=== PATIENT | male | born 1950 | race Caucasian/White ===

== ENCOUNTER 2018-12-01 22:03 | Inpatient (IN) | payer MEDICARE, MEDICAID ==
[~2018-12-01] VITALS: Ht 172.7 cm; Wt 84.5 kg
[~2018-12-01 22:03] MED LIST: ACET-1757 PO; ACET650S12 PR; AMLO10TA8 PO; ASPI-496 PO; DIPH1TAB6 PO; GUAI5SYR PO; HEPA500024 SQ; LOSA100T14 PO; METO25TA35 PO; NITR0.4T28 SL; OMEP-110 PO; OXYC5TAB3 PO; PIPE4.5V6 IVPB; SIMV40TA3 PO
--- NOTE | 2018-12-01 22:20 | NUR ---
PT FLOWN IN FROM [facility]. EMS WAS CALLED S/T PT HAVING CP TONIGHT. STATES INTERMITTENT DIZZINESS AND CP 3 DAYS. "BROKE INTO A SWEAT" YESTERDAY. PT WITH HX OF [place] AND AORTIC DISSECTION. PT RECEIVED 324 MG ASA AND 1 NITRO DREDGEMASTER AND PRESENTS 0/10 FROM 710 CP. DENIES SYMPTOMS AT THIS TIME. VSS. CALL LIGHT IN REACH. FAMILY AT BEDSIDE.
[2018-12-01] MEDS ORDERED: CHLO25TA PO (22:22)
[2018-12-01] MEDS ORDERED: POTA10CA PO (22:22)
[2018-12-01] MEDS ORDERED: METO50TA82 PO (22:22)
[2018-12-01] MEDS ORDERED: CALC0.25 PO (22:22)
[2018-12-01] MEDS ORDERED: LOSA25TA25 PO (22:22)
--- NOTE | 2018-12-01 22:25 | NUR ---
XRAY AT BEDSIDE. LABS HAVE BEEN DRAWN.
[2018-12-01 22:27] LABS: BASOPHILS # (AUTO) 0.06 x10^3/uL (0-0.1); BASOPHILS % (AUTO) 1 % (0-1); EOSINOPHILS # (AUTO) 0.05 x10^3/uL (0-0.4); EOSINOPHILS % (AUTO) 1 % (1-7); LYMPHOCYTES % (AUTO) 15 % (22-44); MD NO; MEAN CORPUSCULAR HGB CONC 33.2 g/dL (33.2-36.2); MEAN CORPUSCULAR VOLUME 90.4 fL (81-97); MEAN PLATELET VOLUME 7.8 fL (7.4-10.4); MONOCYTES # (AUTO) 0.73 x10^3/uL (0.2-0.8); MONOCYTES % (AUTO) 9 % (2-9); NEUTROPHILS # (AUTO) 6.16 x10^3/uL (1.8-6.8); NEUTROPHILS % (AUTO) 75 % (42-75); PLATELET COUNT 186 x10^3/uL (130-400); RED BLOOD COUNT 6.08 x10^6/uL (4.38-5.82); RED CELL DISTRIBUTION WIDTH 14.5 % (9.4-14.8)
[2018-12-01 22:38] LABS: ALANINE AMINOTRANSFERASE 14 U/L (12-78); ALBUMIN 3.6 g/dL (3.4-5.0); ANION GAP 8 mmol/L (5-15); CALCIUM 8.6 mg/dL (8.5-10.1); CHLORIDE 108 mmol/L (98-107); CREATININE 2.87 mg/dL (0.7-1.3)
[2018-12-01 22:43] LABS: ALKALINE PHOSPHATASE 76 U/L (45-117); BILIRUBIN,TOTAL 0.7 mg/dL (0.2-1.0); TOTAL PROTEIN 7.7 g/dL (6.4-8.2); TROPONIN I 0.113 ng/mL (0.000-0.045)
--- NOTE | 2018-12-01 22:50 | NUR ---
PT RESTING COMFORTABLY. NO ACUTE CHANGES NOTED. DENIES CP. AWAITING TEST RESULTS AND RECHECK. CALL LIGHT IN REACH.
[2018-12-01] MEDS ORDERED: ONDANSETRON 2MG/ML, 2ML IVPush PRN (23:30)
[2018-12-01] MEDS ORDERED: MORPHINE SULFATE 4 MG/ML, 1ML IVPush PRN (23:30)
[2018-12-02] MEDS ORDERED: NITROGLYCERIN SINGLE TAB 0.4 MG SL PRN
[2018-12-02 00:12] VITALS: BP 128/80
[2018-12-02] MEDS ORDERED: POLYETHYLENE GLYCOL 17 GM PACKET PO PRN (00:30)
[2018-12-02] MEDS ORDERED: morphine SULFATE 10 MG/ML, 1ML IVPush PRN (00:30)
[2018-12-02] MEDS ORDERED: BISACODYL 10 MG SUPP PR PRN (00:30)
[2018-12-02] MEDS ORDERED: ACETAMINOPHEN 325 MG TABLET PO PRN (00:30)
[2018-12-02] MEDS: POTASSIUM CHLORIDE 10 MEQ TABLET.ER PO SCH ×3 (00:30→21:35)
[2018-12-02] MEDS ORDERED: ONDANSETRON ODT 4 MG PO PRN (00:30)
[2018-12-02] MEDS ORDERED: NITROGLYCERIN 0.4 MG BOTTLE (25 TABS) SL PRN (00:30)
[2018-12-02] MEDS: NICOTINE 14MG/24 HR PATCH.TD24 TD SCH (00:30)
[2018-12-02] MEDS ORDERED: HEPARIN 5,000 UNITS/ML, 1ML SQ SCH (00:30)
[2018-12-02 05:22] LABS: BASOPHILS # (AUTO) 0.06 x10^3/uL (0-0.1); BASOPHILS % (AUTO) 1 % (0-1); EOSINOPHILS # (AUTO) 0.07 x10^3/uL (0-0.4); EOSINOPHILS % (AUTO) 1 % (1-7); LYMPHOCYTES # (AUTO) 2.38 x10^3/uL (1-3.4); LYMPHOCYTES % (AUTO) 31 % (22-44); MD NO; MEAN CORPUSCULAR HEMOGLOBIN 29.9 pg (27.5-34.5); MEAN CORPUSCULAR HGB CONC 33.2 g/dL (33.2-36.2); MEAN PLATELET VOLUME 8.1 fL (7.4-10.4); MONOCYTES # (AUTO) 0.66 x10^3/uL (0.2-0.8); MONOCYTES % (AUTO) 9 % (2-9); NEUTROPHILS # (AUTO) 4.46 x10^3/uL (1.8-6.8); NEUTROPHILS % (AUTO) 59 % (42-75); PLATELET COUNT 186 x10^3/uL (130-400); RED BLOOD COUNT 5.95 x10^6/uL (4.38-5.82); RED CELL DISTRIBUTION WIDTH 14.7 % (9.4-14.8)
[2018-12-02 05:30] LABS: CALCIUM 8.8 mg/dL (8.5-10.1); CHLORIDE 108 mmol/L (98-107)
[2018-12-02 05:39] LABS: ALANINE AMINOTRANSFERASE 12 U/L (12-78); ALBUMIN 3.5 g/dL (3.4-5.0); ALKALINE PHOSPHATASE 67 U/L (45-117); ANION GAP 8 mmol/L (5-15); BILIRUBIN,TOTAL 0.8 mg/dL (0.2-1.0); CREATININE 2.67 mg/dL (0.7-1.3); TOTAL PROTEIN 7.3 g/dL (6.4-8.2); TROPONIN I 0.635 ng/mL (0.000-0.045)
[2018-12-02] MEDS ORDERED: HEPARIN 25,000 UNITS/500ML PMX 500 ML IV PRN (06:30)
[2018-12-02] MEDS ORDERED: HEPARIN MC SCH (06:30)
[2018-12-02] MEDS ORDERED: HEPARIN 5,000 UNITS/ML, 1ML IV ONE (06:30)
[2018-12-02] MEDS: HEPARIN 25,000 UNITS/500ML PMX 500 ML IV PRN (07:00)
[2018-12-02 07:10] VITALS: BP 115/80
[2018-12-02] MEDS ORDERED: AMLODIPINE 10 MG TAB PO SCH (09:00)
[2018-12-02] MEDS ORDERED: CHLORTHALIDONE 25 MG TABLET PO SCH (09:00)
[2018-12-02] MEDS: SENNA/DOCUSATE TABLET PO SCH (09:28)
[2018-12-02] MEDS: OMEPRAZOLE 20 MG CAPSULE.DR PO SCH (09:28)
[2018-12-02] MEDS: SODIUM CHLORIDE FLUSH 10ML SYR IVF SCH ×2 (09:28→21:36)
[2018-12-02] MEDS: CALCITRIOL 0.25 MCG CAPSULE PO SCH (09:28)
[2018-12-02] MEDS: METOPROLOL TARTRATE 50 MG TABLET PO SCH ×2 (09:29→21:00)
[2018-12-02] MEDS: LOSARTAN 25MG TABLET PO SCH (09:29)
[2018-12-02] MEDS: ASPIRIN 81 MG TABLET EC PO SCH (09:29)
[2018-12-02 10:33] LABS: TROPONIN I 0.314 ng/mL (0.000-0.045)
[2018-12-02 12:24] VITALS: BP 116/76
[2018-12-02] MEDS: CLOPIDOGREL 75 MG TABLET PO SCH (13:12)
[2018-12-02] MEDS: ISOSORBIDE MONONITRATE ER 30 MG TABLET PO SCH (13:12)
[2018-12-02 19:34] VITALS: BP 97/60
[2018-12-02 20:48] VITALS: BP 101/63
[2018-12-02] MEDS: HEPARIN 5,000 UNITS/ML, 1ML IV PRN (21:31)
[2018-12-02] MEDS: ATORVASTATIN 80 MG TABLET PO SCH (21:35)
[2018-12-03] MEDS: NICOTINE 14MG/24 HR PATCH.TD24 TD SCH ×2 (00:30→20:44)
[2018-12-03 03:46] VITALS: BP 115/71
[2018-12-03 03:49] LABS: BASOPHILS # (AUTO) 0.11 x10^3/uL (0-0.1); BASOPHILS % (AUTO) 1 % (0-1); EOSINOPHILS # (AUTO) 0.12 x10^3/uL (0-0.4); EOSINOPHILS % (AUTO) 1 % (1-7); LYMPHOCYTES # (AUTO) 2.78 x10^3/uL (1-3.4); LYMPHOCYTES % (AUTO) 31 % (22-44); MD NO; MEAN CORPUSCULAR HEMOGLOBIN 29.8 pg (27.5-34.5); MEAN CORPUSCULAR VOLUME 90.4 fL (81-97); MEAN PLATELET VOLUME 8.2 fL (7.4-10.4); MONOCYTES # (AUTO) 0.79 x10^3/uL (0.2-0.8); MONOCYTES % (AUTO) 9 % (2-9); NEUTROPHILS # (AUTO) 5.24 x10^3/uL (1.8-6.8); NEUTROPHILS % (AUTO) 58 % (42-75); PLATELET COUNT 188 x10^3/uL (130-400); RED BLOOD COUNT 5.84 x10^6/uL (4.38-5.82); RED CELL DISTRIBUTION WIDTH 14.7 % (9.4-14.8)
[2018-12-03 04:00] LABS: ALANINE AMINOTRANSFERASE 14 U/L (12-78); ALBUMIN 3.3 g/dL (3.4-5.0); ANION GAP 9 mmol/L (5-15); CALCIUM 8.6 mg/dL (8.5-10.1); CHLORIDE 108 mmol/L (98-107)
[2018-12-03 04:02] LABS: ALKALINE PHOSPHATASE 64 U/L (45-117); CHOL/HDL RATIO 6.3; CHOLESTEROL, TOTAL 169 mg/dL (140-239); CREATININE 2.82 mg/dL (0.7-1.3); HDL CHOL % 16 % (26-37); HDL CHOLESTEROL (DIRECT) 27 mg/dL (40-60); LDL CHOLESTEROL,CALCULATED 110 mg/dL (54-169); LDL/HDL RATIO 4.1 (0.5-3.0); TRIGLYCERIDES 158 mg/dL (50-200); VLDL CHOLESTEROL 32 mg/dL (0-25)
[2018-12-03 06:40] VITALS: BP 111/66
[2018-12-03] MEDS ORDERED: REGADENOSON 0.4 MG/5 ML SYRINGE ONE (07:49)
[2018-12-03] MEDS: HEPARIN 25,000 UNITS/500ML PMX 500 ML IV PRN (08:26)
[2018-12-03] MEDS: POTASSIUM CHLORIDE 10 MEQ TABLET.ER PO SCH ×2 (10:46→20:41)
[2018-12-03] MEDS: OMEPRAZOLE 20 MG CAPSULE.DR PO SCH (10:46)
[2018-12-03] MEDS: LOSARTAN 25MG TABLET PO SCH (10:47)
[2018-12-03] MEDS: SODIUM CHLORIDE FLUSH 10ML SYR IVF SCH ×2 (10:47→20:40)
[2018-12-03] MEDS: SENNA/DOCUSATE TABLET PO SCH (10:47)
[2018-12-03] MEDS: CLOPIDOGREL 75 MG TABLET PO SCH (10:47)
[2018-12-03] MEDS: ASPIRIN 81 MG TABLET EC PO SCH (10:47)
[2018-12-03] MEDS: ISOSORBIDE MONONITRATE ER 30 MG TABLET PO SCH (10:47)
[2018-12-03] MEDS: METOPROLOL TARTRATE 25 MG TABLET PO SCH ×2 (10:47→20:41)
[2018-12-03 10:52] VITALS: BP 121/79
[2018-12-03] MEDS: HEPARIN 5,000 UNITS/ML, 1ML IV PRN (11:20)
[2018-12-03 12:14] VITALS: BP 109/74
[2018-12-03 20:02] VITALS: BP 108/65
[2018-12-03] MEDS: ATORVASTATIN 80 MG TABLET PO SCH (20:40)
[2018-12-04 02:42] VITALS: BP 109/69
[2018-12-04] MEDS ORDERED: SODIUM CHLORIDE 0.9% 1,000 ML IV SCH (07:30)
[2018-12-04 07:32] VITALS: BP 121/78
[2018-12-04 08:01] LABS: ALBUMIN 3.5 g/dL (3.4-5.0); ANION GAP 6 mmol/L (5-15); CALCIUM 9.1 mg/dL (8.5-10.1); CHLORIDE 108 mmol/L (98-107)
[2018-12-04 08:05] LABS: ALANINE AMINOTRANSFERASE 14 U/L (12-78); ALKALINE PHOSPHATASE 69 U/L (45-117); BILIRUBIN,TOTAL 0.9 mg/dL (0.2-1.0); CREATININE 2.62 mg/dL (0.7-1.3); TOTAL PROTEIN 7.2 g/dL (6.4-8.2)
[2018-12-04] MEDS: CALCITRIOL 0.25 MCG CAPSULE PO SCH (08:15)
[2018-12-04] MEDS: ASPIRIN 81 MG TABLET EC PO SCH (08:16)
[2018-12-04] MEDS: ISOSORBIDE MONONITRATE ER 30 MG TABLET PO SCH (08:16)
[2018-12-04] MEDS: POTASSIUM CHLORIDE 10 MEQ TABLET.ER PO SCH (08:16)
[2018-12-04] MEDS: CLOPIDOGREL 75 MG TABLET PO SCH (08:16)
[2018-12-04] MEDS: SENNA/DOCUSATE TABLET PO SCH (08:17)
[2018-12-04] MEDS: OMEPRAZOLE 20 MG CAPSULE.DR PO SCH (08:17)
[2018-12-04] MEDS: SODIUM CHLORIDE FLUSH 10ML SYR IVF SCH (08:18)
[2018-12-04] MEDS ORDERED: CLOP75TA PO (08:43)
[2018-12-04] MEDS ORDERED: ISOS30TA8 PO (08:43)
[2018-12-04] MEDS ORDERED: ATOR-2 PO (08:43)
[2018-12-04] MEDS ORDERED: METOPROLOL TARTRATE 50 MG TABLET PO SCH (09:00)
[2018-12-04 12:23] VITALS: BP 118/77
== END 2018-12-04 13:12 | disposition home or self-care (01) | DRG 281 ==
LOC: ED 22:36 → EDIP 23:24 → 5SO 12-02 00:05 → DCLOUNGE 12-04 12:37
PROVIDERS: ADMIT Family Medicine; ATTEND Family Medicine
DX: I21.4 Non-ST elevation (NSTEMI) myocardial infarction (principal); N18.4 Chronic kidney disease, stage 4 (severe); Q61.3 Polycystic kidney, unspecified; D68.69 Other thrombophilia; I13.0 Hypertensive heart and chronic kidney disease with heart failure and stage 1 through stage 4 chronic kidney disease, or unspecified chronic kidney disease; I25.110 Atherosclerotic heart disease of native coronary artery with unstable angina pectoris; I15.1 Hypertension secondary to other renal disorders; I50.9 Heart failure, unspecified; E78.5 Hyperlipidemia, unspecified; F17.200 Nicotine dependence, unspecified, uncomplicated; I48.2 Chronic atrial fibrillation; J44.9 Chronic obstructive pulmonary disease, unspecified; D75.1 Secondary polycythemia; I73.9 Peripheral vascular disease, unspecified; K21.9 Gastro-esophageal reflux disease without esophagitis; I25.2 Old myocardial infarction; Z82.49 Family history of ischemic heart disease and other diseases of the circulatory system; Z82.5 Family history of asthma and other chronic lower respiratory diseases; Z95.1 Presence of aortocoronary bypass graft
CPT/HCPCS: 36415; 71045; 78452; 80053; 80061; 84484; 85025; 85520; 93005; 93017; 93306; 99291; G0378; J1644; J2785; A9502; C9898